=== PATIENT | male | born 1950 | race Caucasian/White ===

== ENCOUNTER → 2019-03-31 | Day surgery (SDC) | payer MEDICARE ==
[2019-03-26 14:24] LABS: BASOPHILS % 0.4 % (0.0-1.0); EOSINOPHILS # (AUTO) 0.1 (0.0-0.4); HEMATOCRIT 34.9 % (38.2-49.6); HEMOGLOBIN 11.5 g/dL (14.0-18.0); LYMPHOCYTES # (AUTO) 0.9 (1.0-3.2); LYMPHOCYTES % 8.8 % (18.0-39.1); MEAN CORPUSCULAR HEMOGLOBIN 29.9 pg (28-32); MEAN CORPUSCULAR VOLUME 90.9 fL (81-99); MONOCYTES # (AUTO) 1.2 (0.2-0.8); MONOCYTES % 11.4 % (4.4-11.3); NEUTROPHILS # (AUTO) 7.8 (2.1-6.9); NEUTROPHILS % 77.4 % (38.7-80.0); PLATELET COUNT 320 x10e3/uL (140-360); RED BLOOD COUNT 3.84 x10e6/uL (4.3-5.7); RED CELL DISTRIBUTION WIDTH 13.2 % (11.7-14.4)
[~2019-03-31] MED LIST: ASPIRIN81 MG PO; ATORVASTATIN CA20 MG PO; LIDOCAINE HCL 2% LOCAL INJ 5 ML SDV VIAL INJ ONE; MIDAZOLAM HCL 2 MG/2 ML VIAL ONE; MULTIVITAMINS1 EAC7 PO; NEXIUM20 MG PO; OMEPRAZOLE40 MG PO; PROPOFOL IV EMULSION 10 MG/ML 20 ML VIAL ONE
--- OUTSIDE RECORDS SUMMARY | 2019-03-31 08:47 | XMS REPORT | Summary of Care ---
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 Active Tamsulosin HCl - 0.4 MG Oral Capsule TAKE 1 CAPSULE DAILY * Refills: 0 Active Aspirin 81 MG TABS TAKE 1 TABLET DAILY. * Refills: 0 Active Centrum Silver 50+Men TABS * Refills: 0 Active Montelukast Sodium 10 MG Oral Tablet * Refills: 0 Active Allergies and Adverse Reactions Name Dates Details No Known Drug Allergies (Allergy) Status: Active Procedures Procedure Dates Details Procedures not documented Immunization Name Dates Details Immunizations not documented Social History Name Dates Details - Status: Name Dates Details Smoker. current status unknown Vital Signs Date Test Result Details [id number] BP Systolic 101 mm[Hg] Status: Comments: Location: RUE; Position: Sitting BP Diastolic 67 mm[Hg] Status: Comments: Location: RU; Position: Sitting Height 69 in Status: Weight 167.25 lb Status: Body Mass Index Calculated 24.7 kg/m2 Status: Body Surface Area Calculated 1.91 m2 Status: Heart Rate 82 /min Status: Results Date Description Value Details Results not documented Plan of Care Name Dates Details Planned Observations Planned Goals not documented Planned Encounters Appointment; VINNIE RIDER On: 23-Jan-2019 11:00 Appointment; VALENTINO MALDONADO M.D. On: 29-Jan-2019 11:00 Interventions Provided Labs/Procedures/Imaging* [O] Basic Audiometry Screen; Done: 05 Feb 2018 Instructions Name Dates Details Instructions not documented Encounters Appointment; VALENTINO MALDONADO M.D. Encounter Diagnosis: Problem not documented On: 12-Dec-2017 15:45 Appointment; VALENTINO MALDONADO M.D. Encounter Diagnosis: Problem not documented On: 23-Jan-2018 13:45 Appointment; GENERAL, AUDIOLOGY- Encounter Diagnosis: Problem not documented On: 27-Jan-2018 10:30 Appointment; VALENTINO MALDONADO M.D. Encounter Diagnosis: Problem not documented On: 30-Jan-2018 9:30
--- OUTSIDE RECORDS SUMMARY | 2019-03-31 08:47 | XMS REPORT | Clinical Summary ---
Author Author [facility] Organization [facility] Address Unknown Phone Unavailable Care Team Providers Care Order Builder Name Role Phone Damian Aguilar MD PCP Allergies No Known Allergies Medications End Date Status Medication Sig Dispensed Refills Start Date Active atorvastatin (LIPITOR) 40 0 09/01/201 MG tablet 7 Active aspirin (ECOTRIN) 81 MG Take 81 mg by 0 enteric coated tablet mouth daily. Active Problems Not on file Family History Medical History Relation Name Comments Heart disease Brother Cancer Mother Heart disease Mother Relation Name Status Comments Brother Mother Social History Date Tobacco Use Types Packs/Day Years Used Current Every Day Smoker Cigars 17 Smokeless Tobacco: Never Used Tobacco Cessation: Ready to Quit: No Comments: 3 cigars per day Drinks/Week oz/Week Comments Alcohol Use 14 Cans of beer 10 Shots of liquor 24.0 2 beers and 1 or 2 drinks a day Yes Sex Assigned at Date Recorded Not on file Industry Job Start Date Occupation Not on file Not on file Not on file Travel End Travel History Travel Start No recent travel history available. 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
--- NOTE | 2019-03-31 10:14 | NUR ---
SPIRITUAL CARE - Pre-Surgery Assessment: Pt in bed. Pt's at bedside. Pt reported supportive attention from family and friends. Intervention: I provided pastoral presence, hospitality, and sympathetic listening. I acquainted pt with availability of exec. creative director while hospitalized. Outcome: Pt expressed appreciation for visit. No need for follow up indicated at this time. [facility] O: [phone] Pager: [phone] ([phone] number calling from)
[2019-03-31 12:50] VITALS: BP 100/75
== END | disposition home or self-care (01) ==
LOC: OR 08:45
PROVIDERS: ATTEND Internal Medicine Gastroenterology
DX: R13.10 Dysphagia, unspecified (principal); K29.70 Gastritis, unspecified, without bleeding; K21.9 Gastro-esophageal reflux disease without esophagitis; K44.9 Diaphragmatic hernia without obstruction or gangrene; K58.9 Irritable bowel syndrome, unspecified; R63.4 Abnormal weight loss; R06.09 Other forms of dyspnea; I25.810 Atherosclerosis of coronary artery bypass graft(s) without angina pectoris; I25.2 Old myocardial infarction; Z72.0 Tobacco use; Z01.810 Encounter for preprocedural cardiovascular examination; Z01.812 Encounter for preprocedural laboratory examination; Z79.82 Long term (current) use of aspirin; Z85.46 Personal history of malignant neoplasm of prostate; Z95.1 Presence of aortocoronary bypass graft; Z80.0 Family history of malignant neoplasm of digestive organs
CPT/HCPCS: 36415; 43239; 85025; 93005; J2001; J2250; J2704